=== PATIENT | female | born 1960 ===

== ENCOUNTER 2016-10-23 09:56 | Emergency (ER) | payer OTHER ==
[2016-10-23 10:33] VITALS: BP 153/82
--- NOTE | 2016-10-23 11:47 | UC ---
Gloria Raphael Salem, [facility] on 10/23/16 at 1116 . Skin Complaint HPI - HPI Summary HPI Summary: HPI: Patient is a 55 y/o female who presents to the with a rash on her left cheek for the past 5 days. She states it began as a pruritic bump, but has worsened with itching. She denies fever or any other rashes, but reports mild nausea and dizziness within the past week. Pt reports she has had similar burning rashes in the past (about once every year). She describes it as a string of blisters. note: VSS, post ox: 100%, 510 discomfort because of rash on left cheek. Occasional EtOH, nonsmoker. Hx of HTN. Hx of hysterectomy. Visit hx otherwise noncontributory to current complaint. Nurses note: Sore to left cheek-started Tuesday. - History of Current Complaint Chief Complaint: [facility] Time Seen by Provider: 10/23/16 11:12 Stated Complaint: SKIN COMPLAINT Hx Obtained From: Patient Onset/Duration: Gradual Onset, Lasting Days Onset Severity: Moderate Current Severity: Moderate Location: Face - Left cheek. Aggravating: Other - Itching. Alleviating: Nothing - Allergy/Home Medications Allergies/Adverse Reactions: Allergies Allergy/AdvReac Type Severity Reaction Status Date / Time Morphine AdvReac Intermediate Vomiting Unverified 10/23/16 10:33 Home Medications: Home Medications Diltiazem XR (NF) [Cartia XR (NF)] 240 mg PO DAILY 10/23/16 [History Confirmed 10/23/16] Hydrochlorothiazide TAB* [Hydrodiuril TAB*] 12.5 mg PO DAILY 10/23/16 [History Confirmed 10/23/16] Losartan TAB* [Cozaar TAB*] 25 mg PO DAILY 10/23/16 [History Confirmed 10/23/16] Metformin HCl [Glucophage] 500 mg PO BID 10/23/16 [History Confirmed 10/23/16] Review of Systems Constitutional: Negative Skin: Rash - Left cheek. No other rashes. Neurological: Other - Mild nausea and dizziness this past week. All Other Systems Reviewed And Are Negative: Yes PMH/Surg Hx/FS Hx/Imm Hx Endocrine History Of: Denies: Diabetes, Thyroid Disease Cardiovascular History Of: Reports: Hypertension Denies: Cardiac Disorders Respiratory History Of: Denies: COPD, Asthma GI/ History Of: Denies: Ulcer Cancer History Of: Denies: Breast Cancer - Surgical History Surgical History: Yes Surgery Procedure, Year, and Place: c-sections, cyst removal, bunionectomy, hysterectomy - Family History Known Family History: Positive: Hypertension - Social History Alcohol Use: Occasionally Substance Use Type: None Smoking Status (MU): Never Smoked Tobacco Physical Exam Triage Information Reviewed: Yes Appearance: Well-Appearing, No Pain Distress, Well-Nourished Vital Signs: Initial Vital Signs Temp 98.2 F 10/23/16 10:29 Pulse 68 10/23/16 10:29 Resp 16 10/23/16 10:29 BP 153/82 10/23/16 10:29 Pulse Ox 100 10/23/16 10:29 Vital Signs Reviewed: Yes Eyes: Positive: Conjunctiva Clear ENT: Positive: Hearing grossly normal, Pharynx normal, TMs normal. Negative: Muffled/hoarse voice Neck: Positive: Supple, Nontender, No Lymphadenopathy Respiratory: Positive: Chest non-tender, Lungs clear, Normal breath sounds, No respiratory distress Cardiovascular: Positive: RRR, No Murmur Abdomen Description: Positive: Nontender, No Organomegaly, Soft Bowel Sounds: Positive: Present Musculoskeletal: Positive: Strength Intact, Other: - PAYNE. Neurological: Positive: Alert Psychological: Positive: Age Appropriate Behavior Skin: Positive: rashes - IRREGULAR ERYTHEMATOUS AREA OVER ZYGOMA ON THE LEFT WITH A VASCULAR AREA OF IRREGULAR SHAPE OF 1.5 CM IN LENGTH AND 1 CM VERTICALLY. NO ADENOPATHY OR EXTENSION. NO EVIDENCE OF RASH AT TIP OF NOSE OR INVOLVEMENT OF EYE LID OR EYE. Course/Dx - Course Course Of Treatment: Differential diagnosis: Cellulitis vs herpes. - Diagnoses Provider Diagnoses: Herpetic dermatitis, left cheek. Discharge - Discharge Plan Condition: Stable Disposition: HOME Prescriptions: Acyclovir [Zovirax] 400 mg PO Q4HR #28 tab MDD 5 Patient Education Materials: Shingles (ED) Referrals: Noni Fermin MD [Primary Care Provider] - Additional Instructions: WE DISCUSSED: 1. BASED ON YOUR PAST HISTORY AND THE APPEARANCE OF THE RASH, THIS APPEARS TO BE SHINGLES. MAKE SURE IT DOESN'T SPREAD TO YOUR EYE OR TIP OF NOSE. 2. CALL YOUR DOCTOR TO RE CHECK IN 2 DAYS, NEEDED. 3. IF THE REDNESS SPREADS, YOU NEED TO BE EVALUATED FOR A SKIN INFECTION. 4. RECHECK FOR ANY NEW COUGH. 5. CALL US FOR ANY QUESTIONS OR CONCERNS. 6. YOU SHOULD BE IMPROVING IN 2 DAYS BUT THIS CAN TAKE 2 WEEKS TO GET BETTER. 7. TAKE ONE PILL EVERY 4 HOURS FOR 7 DAYS (5 TIMES A DAY). 8. USE ANTIBIOTIC OINTMENT OR CREAM ON THE RASH. The documentation as recorded by the Gloria nesbitt Salem accurately reflects the service I personally performed and the decisions made by me, Elijah Arrington MD.
== END 2016-10-23 11:50 | disposition home or self-care (01) ==
LOC: UCEAST 09:56
DX: L13.0 Dermatitis herpetiformis (principal); Z88.5 Allergy status to narcotic agent; I10 Essential (primary) hypertension
CPT/HCPCS: 99212; G0463

== ENCOUNTER 2019-02-04 10:12 | Emergency (ER) | payer OTHER ==
[2019-02-04 10:19] VITALS: BP 129/79
[2019-02-04] MEDS ORDERED: Tetracaine 0.5% OPTH.SOL 4 ML* 1 DROP BTL BOTH EYES ONE (10:24)
[2019-02-04] MEDS ORDERED: Fluorescein Sodium TOPICAL* 1 MG TEST STRIP OPHTHALMIC ONE (10:25)
--- NOTE | 2019-02-04 10:28 | UC ---
Eye Complaint HPI - HPI Summary HPI Summary: Yesterday injured her L eye w/ a plant that has thorns. She tried to ignore discomfort and today woke w/ severe eye redness. denies vision changes or pain but does feel discomfort. she wears reading glasses only. - History of Current Complaint Chief Complaint: UCEye Stated Complaint: LEFT EYE INJURY Time Seen by Provider: 02/04/19 10:16 Hx Obtained From: Patient Onset/Duration: Sudden Onset Pain Intensity: 5 Pain Scale Used: 0-10 Numeric Location of Injury: Globe Character: Sharp Aggravating Factor(s): Nothing Alleviating Factor(s): Nothing - Allergies/Home Medications Allergies/Adverse Reactions: Allergies Allergy/AdvReac Type Severity Reaction Status Date / Time morphine Allergy Vomiting Verified 02/04/19 10:20 Home Medications: Home Medications Aspirin [Aspirin EC] 81 mg PO 02/04/19 [History] PMH/Surg Hx/FS Hx/Imm Hx Previously Healthy: Yes Endocrine History: Diabetes Cardiovascular History: Hypertension - Surgical History Surgical History: Yes Surgery Procedure, Year, and Place: c-sections, cyst removal, bunionectomy, hysterectomy - Family History Known Family History: Positive: Hypertension - Social History Alcohol Use: Weekly Substance Use Type: None Smoking Status (MU): Never Smoked Tobacco Review of Systems All Other Systems Reviewed And Are Negative: Yes Constitutional: Negative: Fever Skin: Negative: Rash Eyes: Positive: Eye Redness - L. Negative: Blurred Vision, Diplopia, Drainage, Photophobia, Other - denies pain w/ eye movement Physical Exam Triage Information Reviewed: Yes Appearance: Well-Appearing Vital Signs: Initial Vital Signs Temp 96.6 F 02/04/19 10:15 Pulse 73 02/04/19 10:15 Resp 18 02/04/19 10:15 BP 129/79 02/04/19 10:15 Pulse Ox 99 02/04/19 10:15 Vital Signs Reviewed: Yes Eyes: Positive: Conjunctiva Inflamed - L, Other: - during mckeon lamp exam fluourescein dye noted to pool at puncture site and appear to spread beneath. Negative: Conjunctiva Clear, Discharge Eye Complaint Course/Dx - Course Course Of Treatment: L eye discomfort which developed into L eye redness after being injured w/ a thorn. NO photophobia/pain w/ EOM. On exam there was collection of dye at puncture site including what seemed like beneath the cornea. She must see eye doctor tomorrow and will rx topical antibiotic at this point. - Differential Dx/Diagnosis Differential Diagnosis/HQI/PQRI: Conjunctivitis, Corneal Abrasion, Hyphema Provider Diagnosis: Corneal injury Discharge - Sign-Out/Discharge Documenting (check all that apply): Patient Departure All imaging exams completed and their final reports reviewed: No Studies - Discharge Plan Condition: Good Disposition: HOME Prescriptions: Erythromycin OPTH OINT* [Erythromycin 0.5% OPTH OINT*] 1 applic LEFT EYE TID 7 Days #1 ophth.oint Patient Education Materials: Corneal Abrasion (ED) Referrals: Renea Boyle MD [Medical Doctor] - Additional Instructions: Please call the eye doctor tomorrow to make appointment. - Billing Disposition and Condition Condition: GOOD Disposition: Home - Attestation Statements Provider Attestation: I was available for consult. This patient was seen by the DORA. The patient was not presented to, seen by, or examined by me. -Flor
== END 2019-02-04 10:43 | disposition home or self-care (01) ==
LOC: UCEAST 10:12
DX: S05.8X2A Other injuries of left eye and orbit, initial encounter (principal); W22.8XXA Striking against or struck by other objects, initial encounter; Y92.9 Unspecified place or not applicable; E11.9 Type 2 diabetes mellitus without complications; I10 Essential (primary) hypertension; Z79.82 Long term (current) use of aspirin; Z88.5 Allergy status to narcotic agent
CPT/HCPCS: 99212; A9270-GY; G0463